=== PATIENT | female | born 1990 ===

== ENCOUNTER 2017-03-22 00:42 | Emergency (ER) | payer OTHER ==
[2017-03-22 00:59] VITALS: BP 132/85; PULSE 98; RESP 18; TEMP 99.2; O2SAT 100
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
[2017-03-22] MEDS ORDERED: Fluorescein 1 mg Ophthalmic Strip ONE (01:32)
[2017-03-22] MEDS ORDERED: Tetracaine 0.5% Ophth 2 ML BOTTLE ONE (01:32)
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
--- NOTE | 2017-03-22 09:35 | RAD ---
PROCEDURE: Left Hand Radiographs. HISTORY: r/o left thumb fracture COMPARISON: None. FINDINGS: BONES: Acute fracture at the base of the proximal phalanx left thumb JOINTS: Normal. No osteoarthritic changes. SOFT TISSUES: Normal. OTHER FINDINGS: None. IMPRESSION: Small acute displaced fracture at the base of the proximal phalanx of the left thumb.
== END 2017-03-22 02:59 | disposition home or self-care (01) ==
LOC: H.ER 00:42
DX: S00.83XA Contusion of other part of head, initial encounter (principal); S62.502A Fracture of unspecified phalanx of left thumb, initial encounter for closed fracture; Y04.1XXA Assault by human bite, initial encounter